=== PATIENT | female | born 1945 | race American Indian/Alaskan Native ===

== ENCOUNTER 2016-11-19 17:41 | Emergency (ER) | payer MEDICARE, OTHER ==
[2016-11-19 19:23] VITALS: BP 114/60
--- NOTE | 2016-11-19 19:25 | EDM.PDOC ---
ED HPI GENERAL MEDICAL PROBLEM - General Chief Complaint: Syncope Stated Complaint: MEDICAL VIA AMBULANCE Time Seen by Provider: 11/19/16 18:19 Source of Information: Reports: Patient History Limitations: Reports: No Limitations - History of Present Illness INITIAL COMMENTS - FREE TEXT/NARRATIVE: This lady was brought in by EMS due to syncope. She had been at a local [employer] all day and hadn't eaten much of anything. She has had quite a bit to drink also. She was arousable by sternal rubs and that type of thing by EMS. The same was noted here in the ER. - Related Data Allergies Allergy/AdvReac Type Severity Reaction Status Date / Time codeine Allergy Hives Verified 03/04/15 10:31 Home Meds: Home Meds Aspirin 325 mg PO DAILY 03/04/15 [History] LORazepam 0.5 mg PO BID PRN 03/04/15 [History] Lisinopril 10 mg PO DAILY 03/04/15 [History] Multivitamin [Multivitamins] 1 each PO DAILY 03/04/15 [History] Temazepam 7.5 mg PO BEDTIME PRN 03/04/15 [History] Venlafaxine [Venlafaxine ER] 37.5 mg PO DAILY #30 tab.er 03/05/15 [Rx] Past Medical History HEENT History: Reports: Impaired Vision Cardiovascular History: Reports: Hypertension [employer] History: Reports: Other OB/BYN History: hystorectomy Musculoskeletal History: Reports: Arthritis Psychiatric History: Reports: Addiction, Depression - Infectious Disease History Infectious Disease History: Reports: Chicken Pox, Measles, Other (See Below) Other Infectious Disease History: lymes - Past Surgical History GI Surgical History: Reports: Appendectomy Social & Family History - Family History Cardiac: Reports: CAD, Heart Failure, High Cholesterol, Hypertension, [place] GI: Reports: GERD Musculoskeletal: Reports: Arthritis Psychiatric: Reports: Depression - Tobacco Use Smoking Status *Q: Current Status Unknown - Alcohol Use Days Per Week of Alcohol Use: 3 Number of Drinks Per Day: 3 Total Drinks Per Week: 9 - Recreational Drug Use Recreational Drug Use: No ED ROS GENERAL - Review of Systems Review Of Systems: ROS reveals no pertinent complaints other than HPI. - Physical Exam Exam: See Below Exam Limited By: Altered Mental Status General Appearance: Other (Heavily sedated but arouses to loud voice) Eye Exam: Bilateral Eye: EOMI, PERRL Ears: Normal External Exam Nose: Normal Inspection Throat/Mouth: Normal Oropharynx Head Exam: Atraumatic Neck: Supple Respiratory/Chest: Lungs Clear Cardiovascular: Regular Rate, Rhythm GI/Abdominal: Non-Tender Neuro Exam (Abbreviated): Oriented, CN II-XII Intact, Other (Initially aroused only to loud voice later awake and alert. She seems mildly intoxicated) Extremities: Normal Inspection Psychiatric: Normal Affect Skin Exam: Warm, Dry Course - Vital Signs Last Recorded V/S: Last Vital Signs Temp 36.2 C 11/19/16 17:48 Pulse 70 11/19/16 19:22 Resp 15 11/19/16 19:22 BP 114/60 11/19/16 19:22 Pulse Ox 97 11/19/16 19:22 - Orders/Labs/Meds Orders: Active Orders 24 hr Category Date Time Status EKG Documentation Completion [RC] ASDIRECTED Care 11/19/16 18:22 Active EKG 12 Lead [EK] Urgent Ther 11/19/16 18:21 Ordered Labs: Laboratory Tests 11/19/16 11/19/16 11/19/16 Range/Units 18:35 18:35 18:35 WBC 4.4 L (4.5-11.0) K/uL RBC 3.45 (3.30-5.50) M/uL Hgb 11.3 L (12.0-15.0) g/dL Hct 33.1 L (36.0-48.0) % MCV 96 (80-98) fL MCH 33 H (27-31) pg MCHC 34 (32-36) % Plt Count 354 (150-400) K/uL Neut % (Auto) 38 (36-66) % Lymph % (Auto) 37 (24-44) % [place] % (Auto) 7 H (2-6) % Eos % (Auto) 16 H (2-4) % Baso % (Auto) 2 H (0-1) % Sodium 135 L (140-148) mmol/L Potassium 4.2 (3.6-5.2) mmol/L Chloride 103 (100-108) mmol/L Carbon Dioxide 24 (21-32) mmol/L Anion Gap 12.2 (5.0-14.0) mmol/L BUN 18 (7-18) mg/dL Creatinine 0.8 (0.6-1.0) mg/dL Est Cr Clr Drug Dosing 52.56 mL/min Estimated GFR (MDRD) > 60 (>60) Glucose 94 (74-106) mg/dL Calcium 7.8 L (8.5-10.1) mg/dL Total Bilirubin 0.1 L (0.2-1.0) mg/dL AST 26 (15-37) U/L ALT 29 (12-78) U/L Alkaline Phosphatase 85 (46-116) U/L Troponin I < 0.017 (0.000-0.056) ng/mL Total Protein 6.9 (6.4-8.2) g/dL Albumin 3.2 L (3.4-5.0) g/dL Globulin 3.7 H (2.3-3.5) g/dL Albumin/Globulin Ratio 0.9 L (1.2-2.2) Ethyl Alcohol 279 mg/dL - Re-Assessments/Exams Free Text/Narrative Re-Assessment/Exam: 11/20/16 07:04 EKG showed sinus rhythm at 61 bpm there is early transition otherwise QRSs are normal normal ST and T waves Labs were drawn on this patient and reviewed note an elevated ethanol level. This patient was observed here in the emergency room until she was awake and alert and felt ready to go home and was discharged. She was encouraged not to mix the her sedating psych meds with alcohol. Departure - Departure Time of Disposition: 19:24 Disposition: Home, Self-Care 01 Condition: Fair Clinical Impression: Syncope, Alcohol intoxication - Discharge Information Instructions: Alcohol Intoxication, [id number] Referrals: PCP,None [Primary Care Provider] - Forms: ED Department Discharge Additional Instructions: Avoid excessive alcohol intake because you are taking several medications such as lorazepam temazepam and venlafaxine and all of these interact with alcohol. These interactions can cause you to pass out. - My Orders Last 24 Hours: My Active Orders 11/19/16 18:21 EKG 12 Lead [EK] Urgent 11/19/16 18:22 EKG Documentation Completion [RC] ASDIRECTED - Assessment/Plan Last 24 Hours: My Active Orders 11/19/16 18:21 EKG 12 Lead [EK] Urgent 11/19/16 18:22 EKG Documentation Completion [RC] ASDIRECTED
== END 2016-11-19 19:41 | disposition home or self-care (01) ==
LOC: JP.ED 17:41
DX: R55 Syncope and collapse (principal); F10.129 Alcohol abuse with intoxication, unspecified; I10 Essential (primary) hypertension; Z90.710 Acquired absence of both cervix and uterus; Z90.49 Acquired absence of other specified parts of digestive tract; Z79.82 Long term (current) use of aspirin; Z88.5 Allergy status to narcotic agent; Y90.8 Blood alcohol level of 240 mg/100 ml or more
CPT/HCPCS: 36415; 80053; 84484; 85025; 93005; 99284; G0480; 93010

== ENCOUNTER 2017-01-20 18:03 | Emergency (ER) | payer MEDICARE, OTHER ==
[2017-01-20 18:19] VITALS: BP 93/71
--- NOTE | 2017-01-20 18:32 | EDM.PDOC ---
ED HPI GENERAL MEDICAL PROBLEM - General Chief Complaint: Drug or Alcohol Abuse Stated Complaint: FELL Time Seen by Provider: 01/20/17 18:22 Source of Information: Reports: Patient, RN Notes Reviewed History Limitations: Reports: Intoxication - History of Present Illness INITIAL COMMENTS - FREE TEXT/NARRATIVE: 71-year-old female presents emergency department today via EMS services, she was [facility] earlier this evening had fallen a couple of times was incontinent of urine no seizure-like activity was noted. She does complain of a headache does have multiple bruising all over her body as well as a bruising around her left eye - Related Data Allergies Allergy/AdvReac Type Severity Reaction Status Date / Time codeine Allergy Hives Verified 01/20/17 18:13 Home Meds: Home Meds Aspirin 325 mg PO DAILY 03/04/15 [History] LORazepam 0.5 mg PO BID PRN 03/04/15 [History] Lisinopril 10 mg PO DAILY 03/04/15 [History] Multivitamin [Multivitamins] 1 each PO DAILY 03/04/15 [History] Temazepam 7.5 mg PO BEDTIME PRN 03/04/15 [History] Venlafaxine [Venlafaxine ER] 37.5 mg PO DAILY #30 tab.er 03/05/15 [Rx] Past Medical History HEENT History: Reports: Impaired Vision Cardiovascular History: Reports: Hypertension [employer] History: Reports: Other OB/BYN History: hystorectomy Musculoskeletal History: Reports: Arthritis Psychiatric History: Reports: Addiction, Depression - Infectious Disease History Infectious Disease History: Reports: Chicken Pox, Measles, Other (See Below) Other Infectious Disease History: lymes - Past Surgical History GI Surgical History: Reports: Appendectomy Social & Family History - Family History Cardiac: Reports: CAD, Heart Failure, High Cholesterol, Hypertension, [place] GI: Reports: GERD Musculoskeletal: Reports: Arthritis Psychiatric: Reports: Depression - Tobacco Use Smoking Status *Q: Unknown Ever Smoked - Alcohol Use Days Per Week of Alcohol Use: 3 Number of Drinks Per Day: 3 Total Drinks Per Week: 9 - Recreational Drug Use Recreational Drug Use: No ED ROS GENERAL - Review of Systems Review Of Systems: Unable To Obtain (Secondary to level of intoxication) ED EXAM, HEAD INJURY - Physical Exam Exam: See Below Exam Limited By: Intoxication General Appearance: Alert, Mild Distress Head: Normocephalic, Facial Ecchymosis Nexus Criteria: Evidence of Intoxication Eyes: Bilateral Eye: EOMI, Normal Inspection Ears: Normal External Exam, Normal Canal, Hearing Grossly Normal, Normal TMs Nose: Normal Inspection, Normal Mucousa, No Blood Throat/Mouth: Normal Inspection, Normal Lips, Normal Teeth, Normal Gums, Normal Oropharynx, Normal Voice, No Airway Compromise Neck: Non-Tender, Full Range of Motion, Normal Alignment, Normal Inspection Respiratory: No Respiratory Distress, Lungs Clear, Normal Breath Sounds, No Accessory Muscle Use Cardiovascular: Regular Rate, Rhythm, No Murmur GI/Abdominal Exam: Soft, Non-Tender Back Exam: Normal Inspection, Full Range of Motion. No: CVA Tenderness (R), CVA Tenderness (L) (He is little impaired to) Extremities: Normal Inspection, Normal Range of Motion, Non-Tender, No Pedal Edema, Normal Capillary Refill Neurologic: No Motor/Sensory Deficits, Alert - Maribel Coma Score Best Eye Response ([place]): (4) Open Spontaneously Best Verbal Response ([place]): (4) Confused Conversation Best Motor Response ([place]): (6) Obeys Commands Course - Vital Signs Last Recorded V/S: Last Vital Signs Temp 97.2 F 01/20/17 18:11 Pulse 71 01/20/17 18:18 Resp 14 01/20/17 18:11 BP 93/71 01/20/17 18:18 Pulse Ox 95 01/20/17 18:18 - Orders/Labs/Meds Orders: Active Orders 24 hr Category Date Time Status Cervical Spine wo Cont [CT] Stat Exams 01/20/17 18:27 Taken Head wo Cont [CT] Urgent Exams 01/20/17 18:25 Taken Max Facial Sinus wo Cont [CT] Stat Exams 01/20/17 18:27 Taken Labs: Laboratory Tests 01/20/17 01/20/17 01/20/17 Range/Units 18:43 18:43 18:43 WBC 6.6 (4.5-11.0) K/uL RBC 3.76 (3.30-5.50) M/uL Hgb 12.3 (12.0-15.0) g/dL Hct 36.0 (36.0-48.0) % MCV 96 (80-98) fL MCH 33 H (27-31) pg MCHC 34 (32-36) % Plt Count 340 (150-400) K/uL Neut % (Auto) 40 (36-66) % Lymph % (Auto) 36 (24-44) % [place] % (Auto) 8 H (2-6) % Eos % (Auto) 14 H (2-4) % Baso % (Auto) 2 H (0-1) % Sodium 138 L (140-148) mmol/L Potassium 3.8 (3.6-5.2) mmol/L Chloride 104 (100-108) mmol/L Carbon Dioxide 22 (21-32) mmol/L Anion Gap 15.8 H (5.0-14.0) mmol/L BUN 13 (7-18) mg/dL Creatinine 0.6 (0.6-1.0) mg/dL Est Cr Clr Drug Dosing 66.05 mL/min Estimated GFR (MDRD) > 60 (>60) Glucose 90 (74-106) mg/dL Calcium 8.4 L (8.5-10.1) mg/dL Total Bilirubin 0.2 D (0.2-1.0) mg/dL AST 37 (15-37) U/L ALT 40 (12-78) U/L Alkaline Phosphatase 84 (46-116) U/L Total Protein 7.3 (6.4-8.2) g/dL Albumin 3.7 (3.4-5.0) g/dL Globulin 3.6 H (2.3-3.5) g/dL Albumin/Globulin Ratio 1.0 L (1.2-2.2) Ethyl Alcohol 327 mg/dL Meds: Medications Discontinued Medications Generic Name Dose Route Start Last Admin Trade Name Taryn PRN Reason Stop Dose Admin Ondansetron HCl 4 mg 01/20/17 18:42 01/20/17 18:47 Zofran IVPUSH 01/20/17 18:43 4 mg ONETIME ONE Administration Departure - Departure Time of Disposition: 20:47 Disposition: Home, Self-Care 01 Condition: Fair Clinical Impression: Alcohol intoxication Qualifiers: Complication of substance-induced condition: uncomplicated Qualified Code(s): F10.920 - Alcohol use, unspecified with intoxication, uncomplicated - Discharge Information Referrals: PCP,None [Primary Care Provider] - Forms: ED Department Discharge Additional Instructions: Please followup with your primary care provider in 3-5 days if not better, please call return to the emergency department with worsening of symptoms. - My Orders Last 24 Hours: My Active Orders 01/20/17 18:25 Head wo Cont [CT] Urgent 01/20/17 18:27 Cervical Spine wo Cont [CT] Stat Max Facial Sinus wo Cont [CT] Stat - Assessment/Plan Last 24 Hours: My Active Orders 01/20/17 18:25 Head wo Cont [CT] Urgent 01/20/17 18:27 Cervical Spine wo Cont [CT] Stat Max Facial Sinus wo Cont [CT] Stat Plan: Assessment Acuity = acute Site and laterality = intoxication Etiology = alcohol abuse and dependence Manifestations = frequent falls Location of injury = Home Lab values = CBC, CMP unremarkable alcohol is 327 CT scan head, maxillofacial bones, neck all negative Plan Discharge to home recommend abstaining from alcohol follow-up primary care as needed Patient was in agreement with the plan all questions were answered, they were instructed to return to the emergency department or call for worsening symptoms. This note was dictated using [employer] voice recognition software please call with any questions.
[2017-01-20] MEDS ORDERED: Ondansetron 4 MG/2 ML SDV IVPUSH ONE (18:42)
== END 2017-01-20 22:20 | disposition home or self-care (01) ==
LOC: JP.ED 18:03
DX: F10.120 Alcohol abuse with intoxication, uncomplicated (principal); Y90.8 Blood alcohol level of 240 mg/100 ml or more; I10 Essential (primary) hypertension; Z90.49 Acquired absence of other specified parts of digestive tract; Z79.82 Long term (current) use of aspirin; Z88.5 Allergy status to narcotic agent
CPT/HCPCS: 36415; 70450; 70486; 72125; 80053; 85025; 96374; 99284; G0480; J2405; 99283

== ENCOUNTER 2017-08-11 17:15 | Emergency (ER) | payer MEDICARE, OTHER ==
[2017-08-11] MEDS ORDERED: LORazepam 1 MG Tab PO ONE (20:15)
[2017-08-11] MEDS ORDERED: Sodium Chloride 0.9% 10 ML Syringe FLUSH PRN (21:25)
[2017-08-11] MEDS ORDERED: MVI, Adult with Vitamin K 10 ML, Thiamine 100 MG, Folic Acid 1 MG, Magnesium Sulfate 3 ... IV ONE ×5 (21:26)
[2017-08-11] MEDS ORDERED: Dextrose 5%-0.45% NaCl 1,000 ML IV SCH (23:45)
--- NOTE | 2017-08-12 06:30 | EDM.PDOCBH ---
<Pratik Min - Last Filed: 08/12/17 06:25> ED HPI GENERAL MEDICAL PROBLEM - General Chief Complaint: Drug or Alcohol Abuse Stated Complaint: SUICIDAL VIA NORTH Time Seen by Provider: 08/11/17 18:16 Source of Information: Reports: EMS History Limitations: Reports: Intoxication - History of Present Illness INITIAL COMMENTS - FREE TEXT/NARRATIVE: This patient arrived by EMS. She had been drinking heavily at home and was found on the floor passed out. She remarked to EMS that she was trying to kill herself. She was trying to cut her left wrist but she said the knives were all dull and she just couldn't do it. She said she's been depressed for a long time she can't really tell me why she says there is nobody to care for her and so forth. 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 It's unclear how much she had to drink. - Related Data Allergies Allergy/AdvReac Type Severity Reaction Status Date / Time codeine Allergy Hives Verified 08/11/17 17:41 Home Meds: Home Meds Multivitamin [Multivitamins] 1 each PO DAILY 03/04/15 [History] Betamethasone Dipropionate 15 gm TP ASDIRECTED 08/12/17 [History] Citalopram Hydrobromide [Celexa] 40 mg PO DAILY 08/12/17 [History] Hydrochlorothiazide 25 mg PO DAILY 08/12/17 [History] Ibuprofen [Motrin] 800 mg PO TID 08/12/17 [History] Lisinopril [Prinivil] 40 mg PO DAILY 08/12/17 [History] amLODIPine Besylate [Amlodipine Besylate] 10 mg PO DAILY 08/12/17 [History] Past Medical History HEENT History: Reports: Impaired Vision Cardiovascular History: Reports: Hypertension [employer]D INTER[employer]IP History: Reports: Other OB/BYN History: hystorectomy Musculoskeletal History: Reports: Arthritis Psychiatric History: Reports: Addiction, Depression - Infectious Disease History Infectious Disease History: Reports: Chicken Pox, Measles, Other (See Below) Other Infectious Disease History: lymes - Past Surgical History GI Surgical History: Reports: Appendectomy Social & Family History - Family History Cardiac: Reports: CAD, Heart Failure, High Cholesterol, Hypertension, [place] GI: Reports: GERD Musculoskeletal: Reports: Arthritis Psychiatric: Reports: Depression - Tobacco Use Smoking Status *Q: Light Tobacco Smoker Years of Tobacco use: 50 Packs/Tins Daily: 0.1 ED ROS GENERAL - Review of Systems Review Of Systems: Unable To Obtain (Patient is intoxicated and review of systems would be) ED EXAM, BEHAVIORAL HEALTH - Physical Exam Exam: See Below (Patient is intoxicated and review of systems would be unreliable) Exam Limited By: Intoxication General Appearance: Alert (This lady although intoxicated is alert she is able to talk she gets really tearful when she describes her miseries) Eye Exam: Bilateral Eye: Normal Inspection, PERRL Ears: Normal External Exam Nose: Normal Inspection Throat/Mouth: Normal Oropharynx Head: Atraumatic Neck: Normal Inspection Respiratory/Chest: Lungs Clear Cardiovascular: Regular Rate, Rhythm GI/Abdominal: Non-Tender Extremities: Other (There is a laceration it's approximately 3 cm long its over the distal radius about 6 cm proximal to the wrist. Edges are well approximated they can be pried apart showing that it's full-thickness but it's a very small wound doesn't really need suturing. The wound is clean.) Neurological: CN II-XII Intact, No Motor/Sensory Deficits Psychiatric: Depressed Mood Skin Exam: Other (See extremities) COURSE, BEHAVIORAL HEALTH COMP - Course Vital Signs: Last Vital Signs Temp 36.5 C 08/12/17 02:02 Pulse 78 08/12/17 10:09 Resp 16 08/12/17 10:09 BP 141/86 H 08/12/17 10:09 Pulse Ox 96 08/12/17 10:09 Orders, Labs, Meds: Active Orders 24 hr Category Date Time Status DRUG SCREEN, URINE [URCHEM] Urgent Lab 08/11/17 18:24 Ordered UA W/MICROSCOPIC [URIN] Urgent Lab 08/11/17 18:24 Ordered Dextrose 5%-0.45% NaCl [Dextrose 5%-1/2 NS] 1,000 ml Med 08/11/17 23:45 Active IV ASDIRECTED Sodium Chloride 0.9% [Saline Flush] Med 08/11/17 21:25 Active 10 ml FLUSH ASDIRECTED PRN Saline Lock Insert [OM.PC] Urgent Oth 08/11/17 21:25 Ordered Medication Orders Dextrose/Sodium Chloride (Dextrose 5%-1/2 Ns) 1,000 mls @ 150 mls/hr IV ASDIRECTED HIRAM Last Infusion: 08/12/17 03:18 Dose: 0 mls/hr Admin: 08/11/17 23:47 Dose: 150 mls/hr Sodium Chloride (Saline Flush) 10 ml FLUSH ASDIRECTED PRN PRN Reason: Keep Vein Open Last Admin: 08/11/17 22:03 Dose: 10 ml Laboratory Tests 08/11/17 08/11/17 08/11/17 Range/Units 18:24 18:24 18:24 WBC 7.3 (4.5-11.0) K/uL RBC 3.95 (3.30-5.50) M/uL Hgb 12.4 (12.0-15.0) g/dL Hct 35.7 L (36.0-48.0) % MCV 90 (80-98) fL MCH 31 (27-31) pg MCHC 35 (32-36) % Plt Count 336 (150-400) K/uL Neut % (Auto) 33 L (36-66) % Lymph % (Auto) 44 (24-44) % Woods % (Auto) 7 H (2-6) % Eos % (Auto) 15 H (2-4) % Baso % (Auto) 2 H (0-1) % Sodium (140-148) mmol/L Potassium (3.6-5.2) mmol/L Chloride (100-108) mmol/L Carbon Dioxide (21-32) mmol/L Anion Gap (5.0-14.0) mmol/L BUN (7-18) mg/dL Creatinine (0.6-1.0) mg/dL Est Cr Clr Drug Dosing mL/min Estimated GFR (MDRD) (>60) Glucose (74-106) mg/dL Calcium (8.5-10.1) mg/dL Total Bilirubin (0.2-1.0) mg/dL AST (15-37) U/L ALT (12-78) U/L Alkaline Phosphatase (46-116) U/L Total Protein (6.4-8.2) g/dL Albumin (3.4-5.0) g/dL Globulin (2.3-3.5) g/dL Albumin/Globulin Ratio (1.2-2.2) Urine Color Yellow Urine Appearance Clear Urine pH 6.0 (4.5-8.0) Ur Specific Scalf 1.015 (1.008-1.030) Urine Protein Negative (NEGATIVE) mg/dL Urine Glucose (UA) Normal (NEGATIVE) mg/dL Urine Ketones Negative (NEGATIVE) mg/dL Urine Occult Blood Negative (NEGATIVE) Urine Nitrite Negative (NEGATIVE) Urine Bilirubin Negative (NEGATIVE) Urine Urobilinogen Normal (NORMAL) mg/dL Ur Leukocyte Esterase Negative (NEGATIVE) Urine RBC 0-5 (0-5) Urine WBC 0-5 (0-5) Ur Epithelial Cells Rare Amorphous Sediment Not seen Urine Bacteria Rare Urine Mucus Not seen Salicylates (2.0-20.0) mg/dL Urine Opiates Screen Negative (NEGATIVE) Ur Oxycodone Screen Negative (NEGATIVE) Urine Methadone Screen Negative (NEGATIVE) Ur Propoxyphene Screen Negative (NEGATIVE) Acetaminophen (10.0-30.0) ug/mL Ur Barbiturates Screen Negative (NEGATIVE) Ur Tricyclics Screen Negative (NEGATIVE) Ur Phencyclidine Scrn Negative (NEGATIVE) Ur Amphetamine Screen Negative (NEGATIVE) U Methamphetamines Scrn Negative (NEGATIVE) Urine MDMA Screen Negative (NEGATIVE) U Benzodiazepines Scrn Positive H (NEGATIVE) U Cocaine Metab Screen Negative (NEGATIVE) U Marijuana (THC) Screen Negative (NEGATIVE) Ethyl Alcohol mg/dL 08/11/17 08/11/17 08/11/17 Range/Units 18:24 18:24 18:24 WBC (4.5-11.0) K/uL RBC (3.30-5.50) M/uL Hgb (12.0-15.0) g/dL Hct (36.0-48.0) % MCV (80-98) fL MCH (27-31) pg MCHC (32-36) % Plt Count (150-400) K/uL Neut % (Auto) (36-66) % Lymph % (Auto) (24-44) % Woods % (Auto) (2-6) % Eos % (Auto) (2-4) % Baso % (Auto) (0-1) % Sodium 135 L (140-148) mmol/L Potassium 4.1 (3.6-5.2) mmol/L Chloride 100 (100-108) mmol/L Carbon Dioxide 25 (21-32) mmol/L Anion Gap 14.1 H (5.0-14.0) mmol/L BUN 11 (7-18) mg/dL Creatinine 0.6 (0.6-1.0) mg/dL Est Cr Clr Drug Dosing 69.08 mL/min Estimated GFR (MDRD) > 60 (>60) Glucose 97 (74-106) mg/dL Calcium 8.1 L (8.5-10.1) mg/dL Total Bilirubin 0.2 (0.2-1.0) mg/dL AST 22 (15-37) U/L ALT 20 (12-78) U/L Alkaline Phosphatase 66 (46-116) U/L Total Protein 6.6 (6.4-8.2) g/dL Albumin 3.3 L (3.4-5.0) g/dL Globulin 3.3 (2.3-3.5) g/dL Albumin/Globulin Ratio 1.0 L (1.2-2.2) Urine Color Urine Appearance Urine pH (4.5-8.0) Ur Specific Scalf (1.008-1.030) Urine Protein (NEGATIVE) mg/dL Urine Glucose (UA) (NEGATIVE) mg/dL Urine Ketones (NEGATIVE) mg/dL Urine Occult Blood (NEGATIVE) Urine Nitrite (NEGATIVE) Urine Bilirubin (NEGATIVE) Urine Urobilinogen (NORMAL) mg/dL Ur Leukocyte Esterase (NEGATIVE) Urine RBC (0-5) Urine WBC (0-5) Ur Epithelial Cells Amorphous Sediment Urine Bacteria Urine Mucus Salicylates 3.6 (2.0-20.0) mg/dL Urine Opiates Screen (NEGATIVE) Ur Oxycodone Screen (NEGATIVE) Urine Methadone Screen (NEGATIVE) Ur Propoxyphene Screen (NEGATIVE) Acetaminophen 0.0 L (10.0-30.0) ug/mL Ur Barbiturates Screen (NEGATIVE) Ur Tricyclics Screen (NEGATIVE) Ur Phencyclidine Scrn (NEGATIVE) Ur Amphetamine Screen (NEGATIVE) U Methamphetamines Scrn (NEGATIVE) Urine MDMA Screen (NEGATIVE) U Benzodiazepines Scrn (NEGATIVE) U Cocaine Metab Screen (NEGATIVE) U Marijuana (THC) Screen (NEGATIVE) Ethyl Alcohol 327 mg/dL 08/12/17 Range/Units 02:00 WBC (4.5-11.0) K/uL RBC (3.30-5.50) M/uL Hgb (12.0-15.0) g/dL Hct (36.0-48.0) % MCV (80-98) fL MCH (27-31) pg MCHC (32-36) % Plt Count (150-400) K/uL Neut % (Auto) (36-66) % Lymph % (Auto) (24-44) % Woods % (Auto) (2-6) % Eos % (Auto) (2-4) % Baso % (Auto) (0-1) % Sodium (140-148) mmol/L Potassium (3.6-5.2) mmol/L Chloride (100-108) mmol/L Carbon Dioxide (21-32) mmol/L Anion Gap (5.0-14.0) mmol/L BUN (7-18) mg/dL Creatinine (0.6-1.0) mg/dL Est Cr Clr Drug Dosing mL/min Estimated GFR (MDRD) (>60) Glucose (74-106) mg/dL Calcium (8.5-10.1) mg/dL Total Bilirubin (0.2-1.0) mg/dL AST (15-37) U/L ALT (12-78) U/L Alkaline Phosphatase (46-116) U/L Total Protein (6.4-8.2) g/dL Albumin (3.4-5.0) g/dL Globulin (2.3-3.5) g/dL Albumin/Globulin Ratio (1.2-2.2) Urine Color Urine Appearance Urine pH (4.5-8.0) Ur Specific Scalf (1.008-1.030) Urine Protein (NEGATIVE) mg/dL Urine Glucose (UA) (NEGATIVE) mg/dL Urine Ketones (NEGATIVE) mg/dL Urine Occult Blood (NEGATIVE) Urine Nitrite (NEGATIVE) Urine Bilirubin (NEGATIVE) Urine Urobilinogen (NORMAL) mg/dL Ur Leukocyte Esterase (NEGATIVE) Urine RBC (0-5) Urine WBC (0-5) Ur Epithelial Cells Amorphous Sediment Urine Bacteria Urine Mucus Salicylates (2.0-20.0) mg/dL Urine Opiates Screen (NEGATIVE) Ur Oxycodone Screen (NEGATIVE) Urine Methadone Screen (NEGATIVE) Ur Propoxyphene Screen (NEGATIVE) Acetaminophen (10.0-30.0) ug/mL Ur Barbiturates Screen (NEGATIVE) Ur Tricyclics Screen (NEGATIVE) Ur Phencyclidine Scrn (NEGATIVE) Ur Amphetamine Screen (NEGATIVE) U Methamphetamines Scrn (NEGATIVE) Urine MDMA Screen (NEGATIVE) U Benzodiazepines Scrn (NEGATIVE) U Cocaine Metab Screen (NEGATIVE) U Marijuana (THC) Screen (NEGATIVE) Ethyl Alcohol 77 mg/dL Medications Generic Name Dose Route Start Last Admin Trade Name Freq PRN Reason Stop Dose Admin Dextrose/Sodium Chloride 1,000 mls @ 150 mls/hr 08/11/17 23:45 08/12/17 03:18 Dextrose 5%-1/2 Ns IV 0 mls/hr ASDIRECTED HIRAM Infusion Sodium Chloride 10 ml 08/11/17 21:25 08/11/17 22:03 Saline Flush FLUSH 10 ml ASDIRECTED PRN Administration Keep Vein Open Discontinued Medications Generic Name Dose Route Start Last Admin Trade Name Freq PRN Reason Stop Dose Admin Multivitamins/Minerals 10 ml/ 1,017.2 mls @ 999 mls/hr 08/11/17 21:26 22:00 Thiamine HCl 100 mg/ Folic IV 08/11/17 22:27 999 mls/hr Acid 1 mg/ Magnesium Sulfate 3 ONETIME ONE Administration gm/ Sodium Chloride Lorazepam 2 mg 08/11/17 20:15 08/11/17 20:23 Ativan PO 08/11/17 20:16 2 mg ONETIME ONE Administration Re-Assessment/Re-Exam: This patient was hydrated with 1 banana bag and then started a liter of D5 half- normal saline. When she was voiding frequently that second IV was discontinued. She also received Ativan 2 mg orally. She slept quite a bit. Her daughter came in we talked very briefly. The plan is to watch her overnight and then when she tere up we will call the crisis counselor to see her. Departure - Departure Disposition: Home, Self-Care 01 Clinical Impression: Alcohol abuse, Depression with suicidal ideation Alcohol intoxication Qualifiers: Complication of substance-induced condition: uncomplicated Qualified Code(s): F10.920 - Alcohol use, unspecified with intoxication, uncomplicated - Discharge Information Referrals: PCP,None [Primary Care Provider] - Forms: ED Department Discharge Additional Instructions: Clean your wrist wound twice daily with soap and water. Dry and then apply Bacitracin ointment. Recheck for signs of infection. Start counseling in [place] per the crisis counselor's recommendation today, start this MARYAM. Follow all the recommendations of the crisis counselor. Return as needed. <Fermin Hong G - Last Filed: 08/12/17 10:17> COURSE, BEHAVIORAL HEALTH COMP - Course Re-Assessment/Re-Exam Date: 08/12/17 (Crisis here, advises outpatient counseling.) Medical Clearance: 08/12/17 10:16 medically stable for discharge. Departure - Departure Time of Disposition: 10:30 Condition: Good
[2017-08-12 10:10] VITALS: BP 141/86
[2017-08-12] MEDS ORDERED: LORazepam 0.5 MG Tab PO ONE (10:35)
[2017-08-12] MEDS ORDERED: LORazepam 1 MG Tab PO ONE (10:41)
== END 2017-08-12 12:07 | disposition home or self-care (01) ==
LOC: JP.ED 17:15
DX: F32.9 Major depressive disorder, single episode, unspecified (principal); F10.120 Alcohol abuse with intoxication, uncomplicated; Y90.3 Blood alcohol level of 60-79 mg/100 ml; R45.851 Suicidal ideations; F17.210 Nicotine dependence, cigarettes, uncomplicated; I10 Essential (primary) hypertension; Z79.899 Other long term (current) drug therapy; Z88.5 Allergy status to narcotic agent
CPT/HCPCS: 36415; 80053; 80305; 81001; 85025; 96361; 96365; 99285; A9270; G0480; J3411; J3475; J7040; J7050; J3490

== ENCOUNTER 2019-10-19 18:19 | Emergency (ER) | payer MEDICARE, OTHER ==
[2019-10-19] MEDS ORDERED: Sodium Chloride 0.9% 1,000 ML IV SCH (18:30)
--- NOTE | 2019-10-19 18:35 | EDM.PDOCBH ---
<OfficerChidi - Last Filed: 10/19/19 18:27> ED HPI GENERAL MEDICAL PROBLEM - General Chief Complaint: Drug or Alcohol Abuse Stated Complaint: MEDICAL VIA NORTH Time Seen by Provider: 10/19/19 18:20 Source of Information: Reports: Patient, EMS, RN Notes Reviewed History Limitations: Reports: Intoxication - History of Present Illness INITIAL COMMENTS - FREE TEXT/NARRATIVE: 73-year-old female presents emergency department today via EMS services for intentional overdose, she is still communicative GCS of 15, she admits that she is not happy with her life is lonely and does not want to live anymore she became frustrated and took her medications estimate may be 20 tablets of 1 mg Ativan as well trazodone 50 mg size estimate 20 tablets for total of 1 g, she also consumed 1 bottle of wine. - Related Data Allergies Allergy/AdvReac Type Severity Reaction Status Date / Time codeine Allergy Hives Verified 10/19/19 18:35 Home Meds: Home Meds Multivitamin [Multivitamins] 1 each PO DAILY 03/04/15 [History] Betamethasone Dipropionate 15 gm TP ASDIRECTED 08/12/17 [History] Citalopram Hydrobromide [Celexa] 40 mg PO DAILY 08/12/17 [History] Ibuprofen [Motrin] 800 mg PO TID 08/12/17 [History] Nabumetone [Relafen] 750 mg PO DAILY 08/12/17 [History] amLODIPine Besylate [Amlodipine Besylate] 10 mg PO DAILY 08/12/17 [History] hydroCHLOROthiazide [Hydrochlorothiazide] 25 mg PO DAILY 08/12/17 [History] lisinopriL [Prinivil] 40 mg PO DAILY 08/12/17 [History] Past Medical History HEENT History: Reports: Impaired Vision Cardiovascular History: Reports: Hypertension [employer] History: Reports: Other [employer] History: hystorectomy Musculoskeletal History: Reports: Arthritis Psychiatric History: Reports: Addiction, Depression - Infectious Disease History Infectious Disease History: Reports: Chicken Pox, Measles, Other (See Below) Other Infectious Disease History: lymes - Past Surgical History GI Surgical History: Reports: Appendectomy Social & Family History - Family History Cardiac: Reports: CAD, Heart Failure, High Cholesterol, Hypertension, [place] GI: Reports: GERD Musculoskeletal: Reports: Arthritis Psychiatric: Reports: Depression - Tobacco Use Smoking Status *Q: Former Smoker ED ROS GENERAL - Review of Systems Review Of Systems: Unable To Obtain Reason Not Obtained: Somnolent but arousable ED EXAM, BEHAVIORAL HEALTH - Physical Exam Exam: See Below Exam Limited By: Intoxication General Appearance: No Apparent Distress, Other (Somnolent GCS of 15) Eye Exam: Bilateral Eye: Normal Inspection, PERRL Respiratory/Chest: No Respiratory Distress, Lungs Clear, Normal Breath Sounds, No Accessory Muscle Use, Chest Non-Tender Cardiovascular: Regular Rate, Rhythm, No Murmur GI/Abdominal: Soft, Non-Tender Departure - Departure Disposition: DC/Tfer to Psych Hosp/Unit 65 Clinical Impression: Suicidal ideation Nicotine dependence Qualifiers: Nicotine product type: cigarettes Substance use status: unspecified nicotine- induced disorder Qualified Code(s): F17.219 - Nicotine dependence, cigarettes, with unspecified nicotine-induced disorders - Discharge Information Referrals: PCP,None [Primary Care Provider] - Forms: ED Department Discharge <Fermin Hong G - Last Filed: 10/21/19 15:02> COURSE, BEHAVIORAL HEALTH COMP - Course Vital Signs: Last Vital Signs Temp 35.8 C L 10/21/19 11:06 Pulse 58 L 10/21/19 11:06 Resp 13 10/21/19 11:06 BP 122/62 10/21/19 11:06 Pulse Ox 96 10/21/19 11:06 Orders, Labs, Meds: Medication Orders Sodium Chloride (Normal Saline) 1,000 mls @ 999 mls/hr IV .BOLUS HRIAM Last Admin: 10/19/19 18:42 Dose: 999 mls/hr Documented by: KYLE Laboratory Tests 10/19/19 10/19/19 10/19/19 Range/Units 18:35 18:35 18:35 WBC 7.4 (4.5-11.0) K/uL RBC 3.96 (3.30-5.50) M/uL Hgb 11.5 L (12.0-15.0) g/dL Hct 34.7 L (36.0-48.0) % MCV 88 (80-98) fL MCH 29 (27-31) pg MCHC 33 (32-36) % Plt Count 518 H (150-400) K/uL Neut % (Auto) 46 (36-66) % Lymph % (Auto) 35 (24-44) % Loup % (Auto) 6 (2-6) % Eos % (Auto) 13 H (2-4) % Baso % (Auto) 1 (0-1) % Sodium 140 (140-148) mmol/L Potassium 3.8 (3.6-5.2) mmol/L Chloride 105 (100-108) mmol/L Carbon Dioxide 22 (21-32) mmol/L Anion Gap 13.5 (5.0-14.0) mmol/L BUN 7 (7-18) mg/dL Creatinine 0.7 (0.6-1.0) mg/dL Est Cr Clr Drug Dosing 57.42 mL/min Estimated GFR (MDRD) > 60 (>60) Glucose 92 (74-106) mg/dL Calcium 8.6 (8.5-10.1) mg/dL Total Bilirubin 0.2 (0.2-1.0) mg/dL AST 14 L (15-37) U/L ALT 16 (12-78) U/L Alkaline Phosphatase 99 (46-116) U/L Total Protein 7.4 (6.4-8.2) g/dL Albumin 3.6 (3.4-5.0) g/dL Globulin 3.8 H (2.3-3.5) g/dL Albumin/Globulin Ratio 1.0 L (1.2-2.2) Salicylates 3.3 (2.0-20.0) mg/dL Urine Opiates Screen (NEGATIVE) Ur Oxycodone Screen (NEGATIVE) Urine Methadone Screen (NEGATIVE) Ur Propoxyphene Screen (NEGATIVE) Acetaminophen 0.0 L (10.0-30.0) ug/mL Ur Barbiturates Screen (NEGATIVE) Ur Tricyclics Screen (NEGATIVE) Ur Phencyclidine Scrn (NEGATIVE) Ur Amphetamine Screen (NEGATIVE) U Methamphetamines Scrn (NEGATIVE) Urine MDMA Screen (NEGATIVE) U Benzodiazepines Scrn (NEGATIVE) U Cocaine Metab Screen (NEGATIVE) U Marijuana (THC) Screen (NEGATIVE) Ethyl Alcohol mg/dL 10/19/19 10/19/19 Range/Units 18:35 21:13 WBC (4.5-11.0) K/uL RBC (3.30-5.50) M/uL Hgb (12.0-15.0) g/dL Hct (36.0-48.0) % MCV (80-98) fL MCH (27-31) pg MCHC (32-36) % Plt Count (150-400) K/uL Neut % (Auto) (36-66) % Lymph % (Auto) (24-44) % [place]oup % (Auto) (2-6) % Eos % (Auto) (2-4) % Baso % (Auto) (0-1) % Sodium (140-148) mmol/L Potassium (3.6-5.2) mmol/L Chloride (100-108) mmol/L Carbon Dioxide (21-32) mmol/L Anion Gap (5.0-14.0) mmol/L BUN (7-18) mg/dL Creatinine (0.6-1.0) mg/dL Est Cr Clr Drug Dosing mL/min Estimated GFR (MDRD) (>60) Glucose (74-106) mg/dL Calcium (8.5-10.1) mg/dL Total Bilirubin (0.2-1.0) mg/dL AST (15-37) U/L ALT (12-78) U/L Alkaline Phosphatase (46-116) U/L Total Protein (6.4-8.2) g/dL Albumin (3.4-5.0) g/dL Globulin (2.3-3.5) g/dL Albumin/Globulin Ratio (1.2-2.2) Salicylates (2.0-20.0) mg/dL Urine Opiates Screen Negative (NEGATIVE) Ur Oxycodone Screen Negative (NEGATIVE) Urine Methadone Screen Negative (NEGATIVE) Ur Propoxyphene Screen Negative (NEGATIVE) Acetaminophen (10.0-30.0) ug/mL Ur Barbiturates Screen Negative (NEGATIVE) Ur Tricyclics Screen Negative (NEGATIVE) Ur Phencyclidine Scrn Negative (NEGATIVE) Ur Amphetamine Screen Negative (NEGATIVE) U Methamphetamines Scrn Negative (NEGATIVE) Urine MDMA Screen Negative (NEGATIVE) U Benzodiazepines Scrn Presumptive positive H (NEGATIVE) U Cocaine Metab Screen Negative (NEGATIVE) U Marijuana (THC) Screen Negative (NEGATIVE) Ethyl Alcohol 173 mg/dL Medications Generic Name Dose Route Start Last Admin Trade Name Freq PRN Reason Stop Dose Admin Sodium Chloride 1,000 mls @ 999 mls/hr 10/19/19 18:30 10/19/19 18:42 Normal Saline IV 999 mls/hr .BOLUS HIRAM Administration Discontinued Medications Generic Name Dose Route Start Last Admin Trade Name Taryn PRN Reason Stop Dose Admin Acetaminophen 650 mg 10/20/19 14:36 10/20/19 14:49 Tylenol PO 10/20/19 14:37 650 mg NOW ONE Administration Ibuprofen 800 mg 10/21/19 05:14 10/21/19 05:34 Motrin PO 10/21/19 05:15 800 mg ONETIME ONE Administration Ibuprofen 800 mg 10/21/19 06:01 Motrin PO 10/21/19 06:02 ONETIME ONE Ibuprofen 400 mg 10/21/19 12:28 10/21/19 13:22 Motrin PO 10/21/19 12:29 400 mg ONETIME ONE Administration Ketorolac Tromethamine 30 mg 10/19/19 19:31 10/20/19 01:39 Toradol IVPUSH 10/19/19 19:32 30 mg ONETIME ONE Administration Ketorolac Tromethamine Confirm 10/20/19 01:38 Toradol Administered 10/20/19 01:39 Dose 30 mg .ROUTE .STK-MED ONE Tramadol HCl 50 mg 10/20/19 14:36 10/20/19 14:48 Ultram PO 10/20/19 14:37 50 mg ONETIME ONE Administration Tramadol HCl 50 mg 10/21/19 05:06 10/21/19 05:13 Ultram PO 10/21/19 05:07 50 mg ONETIME ONE Administration Tramadol HCl 50 mg 10/21/19 12:28 10/21/19 13:22 Ultram PO 10/21/19 12:29 50 mg ONETIME ONE Administration Re-Assessment/Re-Exam: No psych beds available today. Crisis advises 72 hr hold and placement. Will try again tomorrow. Re-Assessment/Re-Exam Date: 10/21/19 (Accepted by Abby Ching, arranging transport. ) Departure - Departure Time of Disposition: 16:15 Condition: Fair - Discharge Information *PRESCRIPTION DRUG MONITORING PROGRAM REVIEWED*: No *COPY OF PRESCRIPTION DRUG MONITORING REPORT IN PATIENT MIKAELA: No Sepsis Event Note (ED) - Focused Exam Vital Signs: Vital Signs Temp Pulse Resp BP Pulse Ox 10/21/19 11:06 35.8 C L 58 L 13 122/62 96
[2019-10-19] MEDS ORDERED: Ketorolac 30 MG/ML SDV IVPUSH ONE (19:31)
[2019-10-20] MEDS ORDERED: Ketorolac 30 MG/ML SDV ONE (01:38)
[2019-10-20] MEDS ORDERED: traMADol 50 MG Tab PO ONE (14:36)
[2019-10-20] MEDS ORDERED: Acetaminophen 325 MG Tab PO ONE (14:36)
[2019-10-21] MEDS ORDERED: traMADol 50 MG Tab PO ONE ×2 (05:06→12:28)
[2019-10-21] MEDS ORDERED: Ibuprofen 800 MG Tab PO ONE ×2 (05:14→06:01)
[2019-10-21 11:06] VITALS: BP 122/62; PULSE 58
[2019-10-21] MEDS ORDERED: Ibuprofen 400 MG Tab PO ONE (12:28)
== END 2019-10-21 16:35 ==
LOC: JP.ED 18:19
DX: R45.851 Suicidal ideations (principal); F10.129 Alcohol abuse with intoxication, unspecified; I10 Essential (primary) hypertension; F32.9 Major depressive disorder, single episode, unspecified; F17.210 Nicotine dependence, cigarettes, uncomplicated; Y90.6 Blood alcohol level of 120-199 mg/100 ml; Z90.710 Acquired absence of both cervix and uterus; Z79.899 Other long term (current) drug therapy; Z90.49 Acquired absence of other specified parts of digestive tract; Z88.5 Allergy status to narcotic agent
CPT/HCPCS: 36415; 80053; 80305; 80307; 85025; 96374; 99285; A9270; J1885; J7030

== ENCOUNTER 2022-09-24 13:24 | Emergency (ER) | payer MEDICARE, OTHER ==
[2022-09-24 15:27] VITALS: BP 155/86; PULSE 84
[2022-09-24] MEDS ORDERED: HYDROmorphone 1 MG/ML Syringe IM ONE (16:19)
== END 2022-09-24 16:50 | disposition home or self-care (01) ==
LOC: JP.ED 13:24
DX: S22.41XA Multiple fractures of ribs, right side, initial encounter for closed fracture (principal); E78.00 Pure hypercholesterolemia, unspecified; I10 Essential (primary) hypertension; Z88.5 Allergy status to narcotic agent; Z79.82 Long term (current) use of aspirin; Z79.899 Other long term (current) drug therapy; W18.2XXA Fall in (into) shower or empty bathtub, initial encounter
CPT/HCPCS: 71250; 96372; 99283; J1170